=== PATIENT | female | born 1990 | race Caucasian/White ===

== ENCOUNTER 2017-12-20 00:14 | Emergency (ER) | payer OTHER ==
[2017-12-20] MEDS ORDERED: NS 0.9% 1000 ML* 1,000 ML IV ONE (01:29)
[2017-12-20] MEDS ORDERED: NS 0.9% 1000 ML* 1,000 ML IV SCH (01:45)
[2017-12-20 01:53] LABS: ABS Basophils 0 10^3/ul (0-0.2); ABS Eosinophils 0 10^3/ul (0-0.6); ABS Lymphocytes 0.4 10^3/ul (1.0-4.8); ABS Monocytes 0.3 10^3/ul (0-0.8); ABS Neutrophils 8.8 10^3/ul (1.5-7.7); ABS Nucleated RBC 0 10^3/ul; Eosinophil % 0 % (0-6); Hematocrit 41 % (35-47); Hemoglobin 14.3 g/dl (12.0-16.0); Lymphocyte % 4.3 % (25-47); Mean Corpuscular HGB Conc 35 g/dl (31-36); Mean Corpuscular Hemoglobin 30 pg (27-31); Mean Corpuscular Volume 88 fL (80-97); Mean Platelet Volume 9 um3 (7.4-10.4); Nucleated Red Blood Cells % 0; Platelet Count 213 10^3/ul (150-450); Red Blood Count 4.68 10^6/ul (4.0-5.4); Red Cell Distribution Width 13 % (10.5-15); White Blood Count 9.5 10^3/ul (3.5-10.8)
[2017-12-20 02:01] LABS: INR 0.92 (0.77-1.02)
[2017-12-20 02:09] LABS: EGFR Non-African American 64.3 (>60)
[2017-12-20 02:24] LABS: Urine Appearance Cloudy; Urine Blood Negative (Negative); Urine Color Amber; Urine Ketones Trace (Negative); Urine Protein Negative (Negative); Urine Specific Gravity 1.032 (1.010-1.030); Urine Urobilinogen Negative (Negative)
[2017-12-20] MEDS ORDERED: Iohexol 300* (CONTRAST) 10 ML SDV IV ONE (05:03)
[2017-12-20] MEDS ORDERED: Levofloxacin TAB* 500 MG PO ONE (05:35)
--- NOTE | 2017-12-20 05:41 | ED ---
Deshawn Escalante Angela, scribed for Perez Antoine on 12/20/17 at 0131 . GI/ HPI - HPI Summary HPI Summary: This pt is a 26 y/o female presenting to [facility] c/o UTI symptoms, diarrhea, and vomiting since this morning. Pt reports she has had 5-6 episodes of vomiting and 3 episodes of diarrhea. She additionally states abd pain and back pain. Pt notes she has had a low grade fever. Pt still has her appendix. Denies any PMHx. - History of Current Complaint Chief Complaint: EDNauseaVomitDiarrh Time Seen by Provider: 12/20/17 01:25 Stated Complaint: D/V, FEVER Hx Obtained From: Patient Onset/Duration: Started Hours Ago, Still Present Timing: Lasting Hours Current Severity: Moderate Pain Intensity: 6 Location of Pain: Diffuse Associated Signs and Symptoms: Positive: Nausea, Vomiting, Diarrhea, Fever - low grade, Abdominal Pain, UTI Symptoms, Other: - back pain Aggravating Factor(s): Nothing Alleviating Factor(s): Nothing - Allergy/Home Medications Allergies/Adverse Reactions: Allergies Allergy/AdvReac Type Severity Reaction Status Date / Time No Known Allergies Allergy Verified 12/20/17 01:18 PMH/Surg Hx/FS Hx/Imm Hx Endocrine/Hematology History: Denies: Hx Diabetes Cardiovascular History: Denies: Hx Hypertension History: Denies: Hx Kidney Stones - Immunization History Date of Tetanus Vaccine: unk Date of Influenza Vaccine: none Infectious Disease History: No Infectious Disease History: Denies: Traveled Outside the [place] in Last 30 Days - Family History Known Family History: Positive: Other - mom-ovarian cysts, removed - Social History Alcohol Use: Rare Hx Substance Use: No Substance Use Type: Reports: None Smoking Status (MU): Never Smoked Tobacco Review of Systems Positive: Fever - low grade Positive: Abdominal Pain, Vomiting, Diarrhea, Nausea Genitourinary: Other - UTI symptoms Musculoskeletal: Other - back pain All Other Systems Reviewed And Are Negative: Yes Physical Exam - Summary Physical Exam Summary: Appearance: Well appearing, no pain distress Skin: warm, dry, reflects adequate perfusion Head/face: normal Eyes: EOMI, TADEO ENT: normal Neck: supple, nontender Respiratory: CTA, breath sounds present Cardiovascular: RRR, pulses symmetrical Abdomen: soft, diffuse abdominal tenderness mostly in the RLQ. Bowel: present Musculoskeletal: normal, strength/ROM intact Neuro: normal, sensory motor intact, A&Ox3 Triage Information Reviewed: Yes Vital Signs On Initial Exam: Initial Vitals Temp Pulse Resp BP Pulse Ox 98.5 F 105 18 126/61 97 12/20/17 00:27 12/20/17 00:27 12/20/17 00:27 12/20/17 00:27 12/20/17 00:27 Vital Signs Reviewed: Yes Diagnostics - Vital Signs Vital Signs Temp Pulse Resp BP Pulse Ox 12/20/17 00:27 98.5 F 105 18 126/61 97 - Laboratory Lab Results: Lab Results 12/20/17 12/20/17 12/20/17 Range/Units 01:41 01:41 01:41 WBC 9.5 (3.5-10.8) 10^3/ul RBC 4.68 (4.0-5.4) 10^6/ul Hgb 14.3 (12.0-16.0) g/dl Hct 41 (35-47) % MCV 88 (80-97) fL MCH 30 (27-31) pg MCHC 35 (31-36) g/dl RDW 13 (10.5-15) % Plt Count 213 (150-450) 10^3/ul MPV 9 (7.4-10.4) um3 Neut % (Auto) 92.7 H (38-83) % Lymph % (Auto) 4.3 L (25-47) % [place] % (Auto) 2.8 (0-7) % Eos % (Auto) 0 (0-6) % Baso % (Auto) 0.2 (0-2) % Absolute Neuts (auto) 8.8 H (1.5-7.7) 10^3/ul Absolute Lymphs (auto) 0.4 L (1.0-4.8) 10^3/ul Absolute Monos (auto) 0.3 (0-0.8) 10^3/ul Absolute Eos (auto) 0 (0-0.6) 10^3/ul Absolute Basos (auto) 0 (0-0.2) 10^3/ul Absolute Nucleated RBC 0 10^3/ul Nucleated RBC % 0 INR (Anticoag Therapy) 0.92 (0.77-1.02) APTT 28.7 (26.0-36.3) seconds Sodium 132 L (133-145) mmol/L Potassium 3.8 (3.5-5.0) mmol/L Chloride 101 (101-111) mmol/L Carbon Dioxide 21 L (22-32) mmol/L Anion Gap 10 (2-11) mmol/L BUN 13 (6-24) mg/dL Creatinine 1.03 H (0.51-0.95) mg/dL Est GFR ( Amer) 82.7 (>60) Est GFR (Non-Af Amer) 64.3 (>60) BUN/Creatinine Ratio 12.6 (8-20) Glucose 119 H (70-100) mg/dL Lactic Acid (0.5-2.0) mmol/L Calcium 9.1 (8.6-10.3) mg/dL Total Bilirubin 0.60 (0.2-1.0) mg/dL AST 18 (13-39) U/L ALT 17 (7-52) U/L Alkaline Phosphatase 48 (34-104) U/L Total Protein 7.3 (6.4-8.9) g/dL Albumin 3.9 (3.2-5.2) g/dL Globulin 3.4 (2-4) g/dL Albumin/Globulin Ratio 1.1 (1-3) Lipase 12 (11.0-82.0) U/L Beta HCG, Quant < 0.60 mIU/mL Urine Color Urine Appearance Urine pH (5-9) Ur Specific [place] (1.010-1.030) Urine Protein (Negative) Urine Ketones (Negative) Urine Blood (Negative) Urine Nitrate (Negative) Urine Bilirubin (Negative) Urine Urobilinogen (Negative) Ur Leukocyte Esterase (Negative) Urine WBC (Auto) (Absent) Urine RBC (Auto) (Absent) Ur Squamous Epith Cells (Absent) Urine Bacteria (Absent) Urine Glucose (Negative) Urine Ascorbic Acid (Negative) 12/20/17 12/20/17 Range/Units 01:41 02:00 WBC (3.5-10.8) 10^3/ul RBC (4.0-5.4) 10^6/ul Hgb (12.0-16.0) g/dl Hct (35-47) % MCV (80-97) fL MCH (27-31) pg MCHC (31-36) g/dl RDW (10.5-15) % Plt Count (150-450) 10^3/ul MPV (7.4-10.4) um3 Neut % (Auto) (38-83) % Lymph % (Auto) (25-47) % [place] % (Auto) (0-7) % Eos % (Auto) (0-6) % Baso % (Auto) (0-2) % Absolute Neuts (auto) (1.5-7.7) 10^3/ul Absolute Lymphs (auto) (1.0-4.8) 10^3/ul Absolute Monos (auto) (0-0.8) 10^3/ul Absolute Eos (auto) (0-0.6) 10^3/ul Absolute Basos (auto) (0-0.2) 10^3/ul Absolute Nucleated RBC 10^3/ul Nucleated RBC % INR (Anticoag Therapy) (0.77-1.02) APTT (26.0-36.3) seconds Sodium (133-145) mmol/L Potassium (3.5-5.0) mmol/L Chloride (101-111) mmol/L Carbon Dioxide (22-32) mmol/L Anion Gap (2-11) mmol/L BUN (6-24) mg/dL Creatinine (0.51-0.95) mg/dL Est GFR ( Amer) (>60) Est GFR (Non-Af Amer) (>60) BUN/Creatinine Ratio (8-20) Glucose (70-100) mg/dL Lactic Acid 1.8 (0.5-2.0) mmol/L Calcium (8.6-10.3) mg/dL Total Bilirubin (0.2-1.0) mg/dL AST (13-39) U/L ALT (7-52) U/L Alkaline Phosphatase (34-104) U/L Total Protein (6.4-8.9) g/dL Albumin (3.2-5.2) g/dL Globulin (2-4) g/dL Albumin/Globulin Ratio (1-3) Lipase (11.0-82.0) U/L Beta HCG, Quant mIU/mL Urine Color Ila Urine Appearance Cloudy Urine pH 5.0 (5-9) Ur Specific [place] 1.032 H (1.010-1.030) Urine Protein Negative (Negative) Urine Ketones Trace H (Negative) Urine Blood Negative (Negative) Urine Nitrate Negative (Negative) Urine Bilirubin Negative (Negative) Urine Urobilinogen Negative (Negative) Ur Leukocyte Esterase 2+ H (Negative) Urine WBC (Auto) 2+(11-20/hpf) H (Absent) Urine RBC (Auto) 1+(3-5/hpf) H (Absent) Ur Squamous Epith Cells Present H (Absent) Urine Bacteria 1+ H (Absent) Urine Glucose Negative (Negative) Urine Ascorbic Acid * H (Negative) Result Diagrams: 12/20/17 01:41 12/20/17 01:41 Lab Statement: Any lab studies that have been ordered have been reviewed, and results considered in the medical decision making process. - CT Abdomen/Pelvis CT CT Interpretation: No Acute Changes - IMPRESSION: Negative for appendicitis. Normal appendix is visualized. No bowel obstruction, free air, or free fluid. Negative for diverticulitis or colitis. Normal liver. No obvious gallbladder abnormalities. Normal spleen. Normal pancreas. Normal adrenal glands. Normal kidneys urinary tract and urinary bladder. No obvious abnormalities of the pelvic organs. Osseous structures are intact. Dr. Antoine has reviewed this radiology report. CT Interpretation Completed By: Radiologist Re-Evaluation - Re-Evaluation First Eval Re-Evaluation Time: 05:37 Comment: I reviewed the CT abdomen/pelvis results with the pt. GIGU Course/Dx - Course Course Of Treatment: Pt is a 26 y/o female who presents with UTI symptoms, diarrhea, vomiting, abd pain and back pain since this morning. Pt still has her appendix. Bloodwork, UA and CT abdomen/pelvis were obtained. CT of the abdomen/ pelvis is negative. Pt will be discharged home with a prescription for Levaquin for her UTI. She is advised to follow up with her PCP. - Diagnoses Differential Diagnoses - Female: Appendicitis, Diverticulitis, Renal Colic, Urinary Tract Infection Provider Diagnoses: Urinary tract infection Discharge - Discharge Plan Condition: Stable Disposition: HOME Prescriptions: Levofloxacin TAB* [Levaquin TAB*] 500 mg PO DAILY #5 tab Patient Education Materials: Urinary Tract Infection in Women (ED) Referrals: [facility] - MRPaulo [Primary Care Provider] - 3 Days Additional Instructions: Please follow up with your primary care provider in 3 days. RETURN TO THE ED FOR ANY WORSENING SYMPTOMS. The documentation as recorded by the Deshawn oro Angela accurately reflects the service I personally performed and the decisions made by , Perez Antoine.
[2017-12-20 06:04] VITALS: BP 113/64
--- NOTE | 2017-12-20 08:27 | RAD ---
CLINICAL HISTORY: Right lower quadrant. COMPARISON: None TECHNIQUE: Contrast enhanced CT examination of the abdomen and pelvis from the lung bases through the initial tuberosities. The patient received 79 mL Omnipaque 300 intravenously prior to imaging.The patient received oral contrast as well prior to imaging. FINDINGS: VISUALIZED LUNG BASES: The visualized lung bases are grossly clear. There is no pleural effusion. ABDOMEN AND PELVIS: The liver, spleen, pancreas and adrenal glands are grossly normal in appearance. The gallbladder is normal. The kidneys are normal in appearance without focal mass, calcification or signs of hydronephrosis. The oral contrast has progressed as far as the descending colon. The small and large bowel are not distended. The diminutive contrast-filled appendix is identified in the right lower quadrant (axial image 56 and coronal image 36). There are scattered loops of small bowel that exhibited very mild wall thickening up to 5 mm in thickness (for example coronal image 33 and 24). Mesenteric lymph nodes are identified measuring up to 8 mm in short axis diameter. The pelvic viscera is normal in appearance. The abdominal aorta and iliac arteries are normal in course and diameter. There are no sinister bone lesions. IMPRESSION: 1. Normal-appearing appendix. 2. Top normal enlarged mesenteric lymph nodes and questionable mild scattered wall thickening of the small bowel. Please correlate to signs and symptoms of inflammatory or infectious bowel disease.
--- NOTE | 2017-12-23 08:55 | ED ---
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 Her cc was "UTI w/ vomiting, diarrhea, ab pain, back pain". A pelvic exam was not performed so unsure if this was causing pt's sx (possible PID) or other causes. Attempted to contact pt and voice message dulce "caller is unavailable - please try again later " - no option to leave message. Will mail letter to home. wes Ocampo, rita. Re-Evaluation - Re-Evaluation First Eval Re-Evaluation Time: 05:37 Comment: I reviewed the CT abdomen/pelvis results with the pt. Course/Dx - Course Course Of Treatment: Pt is a 26 y/o female who presents with UTI symptoms, diarrhea, vomiting, abd pain and back pain since this morning. Pt still has her appendix. Bloodwork, UA and CT abdomen/pelvis were obtained. CT of the abdomen/ pelvis is negative. Pt will be discharged home with a prescription for Levaquin for her UTI. She is advised to follow up with her PCP. - Diagnoses Provider Diagnoses: Urinary tract infection
== END 2017-12-20 06:03 | disposition home or self-care (01) ==
LOC: ED 00:14
DX: N39.0 Urinary tract infection, site not specified (principal); R11.10 Vomiting, unspecified; R19.7 Diarrhea, unspecified; R10.9 Unspecified abdominal pain
CPT/HCPCS: 36415; 74177; 80053; 81003; 81015; 83605; 83690; 84702; 85025; 85610; 85730; 87077; 87086; 96360; 99282; Q9967

== ENCOUNTER 2019-04-17 17:34 | Emergency (ER) | payer OTHER ==
[2019-04-17 20:17] LABS: ABS Basophils 0.1 10^3/ul (0-0.2); ABS Eosinophils 0.1 10^3/ul (0-0.6); ABS Lymphocytes 2.7 10^3/ul (1.0-4.8); ABS Monocytes 0.6 10^3/ul (0-0.8); ABS Neutrophils 4.8 10^3/ul (1.5-7.7); Eosinophil % 0.8 %; Hematocrit 44 % (35-47); Lymphocyte % 33.2 %; Mean Corpuscular HGB Conc 34 g/dL (31-36); Mean Corpuscular Hemoglobin 30 pg (27-31); Mean Corpuscular Volume 87 fL (80-97); Mean Platelet Volume 8.6 fL (7.4-10.4); Nucleated Red Blood Cells % 0.1; Platelet Count 273 10^3/uL (150-450); Red Blood Count 5.06 10^6 /uL (3.70-4.87); Red Cell Distribution Width 13 % (10-15); White Blood Count 8.2 10^3/uL (3.5-10.8)
[2019-04-17 20:24] LABS: INR 0.85 (0.82-1.09)
[2019-04-17 20:32] LABS: ALT 15 U/L (7-52); AST 17 U/L (13-39); Albumin 4.4 g/dL (3.2-5.2); Albumin/Globulin Ratio 1.1 (1-3); Alkaline Phosphatase 66 U/L (34-104); Anion Gap 7 mmol/L (2-11); BUN/Creatinine Ratio 14.9 (8-20); Blood Urea Nitrogen 14 mg/dL (6-24); CO2 Carbon Dioxide 26 mmol/L (22-32); Calcium 10.1 mg/dL (8.6-10.3); Chloride 103 mmol/L (101-111); Creatine Kinase 55 U/L (10-223); EGFR African American 85.2 (>60); EGFR Non-African American 70.4 (>60); Globulin 3.9 g/dL (2-4); Glucose 88 mg/dL (70-100); Magnesium 1.9 mg/dL (1.9-2.7); Potassium 4.3 mmol/L (3.5-5.0); Sodium 136 mmol/L (135-145); Total Protein 8.3 g/dL (6.4-8.9)
[2019-04-17 20:37] LABS: CKMB ng/mL 0.6 ng/mL (0.6-6.3)
--- NOTE | 2019-04-17 20:39 | ED ---
HPI Chest Pain - HPI Summary HPI Summary: A 28 y/o female presents to [facility] with a chief complaint of intermittent chest tightness since about 04/07/19. She thinks that this chest tightness made her more anxious. She notes that she has SOB and that her symptoms are worsened when eating and lying down. She states that she has to be "very deliberate to get a full breath in." She says that her chest tightness is mostly left sided and is intermittent. Her CP does not radiate. She denies N/V or sweating but notes that she may be a little nauseous after eating. She took Tums and Propranolol with no relief. She denies any calf pain. She sees people at [facility]. No Hx of blood clots. No FHx of bloodclots. FHx CHF from grandfather, dementia, Strokes. No SHx. Takes control. She reports EtOH use once per month. She denies smoking or substance abuse. Vital signs while in room: 90 bpm, O2 Sat 100%, BP 120/80 - History of Current Complaint Chief Complaint: EDChestPainROMI Hx Obtained From: Patient Onset/Duration: Started Days Ago, Still Present Timing: Intermittent, Lasting Minutes Initial Severity: Mild Current Severity: None Pain Intensity: 0 Pain Scale Used: 0-10 Numeric Chest Pain Location: Left Anterior Chest Pain Radiates: No Character: Tightness Aggravating Factor(s): Other: - eating, lying down Alleviating Factor(s): Nothing Associated Signs and Symptoms: Positive: Chest Pain, Shortness of Breath. Negative: Fever, Nausea, Vomiting - Allergy/Home Medications Allergies/Adverse Reactions: Allergies Allergy/AdvReac Type Severity Reaction Status Date / Time No Known Allergies Allergy Verified 12/20/17 01:18 Home Medications: Home Medications Norethindrone/Eth Est .03/26NF [Junel (NF)] 1 tab PO 04/17/19 [History] Propranolol TAB* [Inderal TAB*] 10 mg PO TID 04/17/19 [History Confirmed ] PMH/Surg Hx/FS Hx/Imm Hx Previously Healthy: Yes Endocrine/Hematology History: Denies: Hx Diabetes Cardiovascular History: Denies: Hx Hypertension Respiratory History: Denies: Hx Pulmonary Embolism History: Denies: Hx Kidney Stones - Surgical History Surgical History: None Surgery Procedure, Year, and Place: none reported - Immunization History Date of Tetanus Vaccine: unk Date of Influenza Vaccine: none Infectious Disease History: No Infectious Disease History: Denies: Traveled Outside the [place] in Last 30 Days - Family History Known Family History: Positive: Other - mom-ovarian cysts, removed, CHF, dementia, Stroke - Social History Occupation: Student - student support counselor at [employer] Alcohol Use: Rare Alcohol Amount: once per month Hx Substance Use: No Substance Use Type: Reports: None Smoking Status (MU): Never Smoked Tobacco Review of Systems Negative: Fever Positive: Chest Pain - tightness Positive: Shortness Of Breath Negative: Vomiting, Nausea Positive: no symptoms reported Musculoskeletal: Negative Skin: Negative Neurological: Negative Psychological: Normal All Other Systems Reviewed And Are Negative: Yes Physical Exam - Summary Physical Exam Summary: Appearance: well-appearing, intermittent mild pain distress, well-nourished Skin: Warm, color reflects adequate perfusion, dry Head: Normal Head/Face inspection, atraumatic Eyes: Conjunctiva clear ENT: Normal inspection Neck: Supple, no nodes, no JVD Respiratory: Lungs clear, normal breath sounds, no respiratory distress Cardio: RRR, No murmur, pulses normal, brisk capillary refill Abdomen: Soft, nontender Bowel sounds: Present Musculoskeletal: Strength Intact/ROM intact, no calf tenderness, no edema. Psychological: Normal Neuro: Alert, muscle tone normal, no focal deficit Triage Information Reviewed: Yes Vital Signs On Initial Exam: Initial Vitals Temp Pulse Resp BP Pulse Ox 98.1 F 68 18 128/81 100 04/17/19 17:45 04/17/19 17:45 04/17/19 17:45 04/17/19 17:45 04/17/19 17:45 Vital Signs Reviewed: Yes Diagnostics - Vital Signs Vital Signs Temp Pulse Resp BP Pulse Ox 04/17/19 17:45 98.1 F 68 18 128/81 100 - Laboratory Lab Results: Lab Results 04/17/19 04/17/19 04/17/19 Range/Units 20:00 20:00 20:00 WBC 8.2 (3.5-10.8) 10^3/uL RBC 5.06 H (3.70-4.87) 10^6 /uL Hgb 15.0 (12.0-16.0) g/dL Hct 44 (35-47) % MCV 87 (80-97) fL MCH 30 (27-31) pg MCHC 34 (31-36) g/dL RDW 13 (10-15) % Plt Count 273 (150-450) 10^3/uL MPV 8.6 (7.4-10.4) fL Neut % (Auto) 58.4 % Lymph % (Auto) 33.2 % [place] % (Auto) 6.8 % Eos % (Auto) 0.8 % Baso % (Auto) 0.8 % Absolute Neuts (auto) 4.8 (1.5-7.7) 10^3/ul Absolute Lymphs (auto) 2.7 (1.0-4.8) 10^3/ul Absolute Monos (auto) 0.6 (0-0.8) 10^3/ul Absolute Eos (auto) 0.1 (0-0.6) 10^3/ul Absolute Basos (auto) 0.1 (0-0.2) 10^3/ul Absolute Nucleated RBC 0.0 10^3/ul Nucleated RBC % 0.1 INR (Anticoag Therapy) 0.85 (0.82-1.09) D-Dimer, Quantitative < 200 (Less Than 230) ng/mL Sodium 136 (135-145) mmol/L Potassium 4.3 (3.5-5.0) mmol/L Chloride 103 (101-111) mmol/L Carbon Dioxide 26 (22-32) mmol/L Anion Gap 7 (2-11) mmol/L BUN 14 (6-24) mg/dL Creatinine 0.94 (0.51-0.95) mg/dL Est GFR ( Amer) 85.2 (>60) Est GFR (Non-Af Amer) 70.4 (>60) BUN/Creatinine Ratio 14.9 (8-20) Glucose 88 (70-100) mg/dL Lactic Acid (0.5-2.0) mmol/L Calcium 10.1 (8.6-10.3) mg/dL Magnesium 1.9 (1.9-2.7) mg/dL Total Bilirubin 0.40 (0.2-1.0) mg/dL AST 17 (13-39) U/L ALT 15 (7-52) U/L Alkaline Phosphatase 66 (34-104) U/L Total Creatine Kinase 55 (10-223) U/L CK-MB (CK-2) Pending Troponin I Pending Total Protein 8.3 (6.4-8.9) g/dL Albumin 4.4 (3.2-5.2) g/dL Globulin 3.9 (2-4) g/dL Albumin/Globulin Ratio 1.1 (1-3) TSH Pending Beta HCG, Quant Pending 04/17/19 Range/Units 20:00 WBC (3.5-10.8) 10^3/uL RBC (3.70-4.87) 10^6 /uL Hgb (12.0-16.0) g/dL Hct (35-47) % MCV (80-97) fL MCH (27-31) pg MCHC (31-36) g/dL RDW (10-15) % Plt Count (150-450) 10^3/uL MPV (7.4-10.4) fL Neut % (Auto) % Lymph % (Auto) % [place] % (Auto) % Eos % (Auto) % Baso % (Auto) % Absolute Neuts (auto) (1.5-7.7) 10^3/ul Absolute Lymphs (auto) (1.0-4.8) 10^3/ul Absolute Monos (auto) (0-0.8) 10^3/ul Absolute Eos (auto) (0-0.6) 10^3/ul Absolute Basos (auto) (0-0.2) 10^3/ul Absolute Nucleated RBC 10^3/ul Nucleated RBC % INR (Anticoag Therapy) (0.82-1.09) D-Dimer, Quantitative (Less Than 230) ng/mL Sodium (135-145) mmol/L Potassium (3.5-5.0) mmol/L Chloride (101-111) mmol/L Carbon Dioxide (22-32) mmol/L Anion Gap (2-11) mmol/L BUN (6-24) mg/dL Creatinine (0.51-0.95) mg/dL Est GFR ( Amer) (>60) Est GFR (Non-Af Amer) (>60) BUN/Creatinine Ratio (8-20) Glucose (70-100) mg/dL Lactic Acid 0.5 (0.5-2.0) mmol/L Calcium (8.6-10.3) mg/dL Magnesium (1.9-2.7) mg/dL Total Bilirubin (0.2-1.0) mg/dL AST (13-39) U/L ALT (7-52) U/L Alkaline Phosphatase (34-104) U/L Total Creatine Kinase (10-223) U/L CK-MB (CK-2) Troponin I Total Protein (6.4-8.9) g/dL Albumin (3.2-5.2) g/dL Globulin (2-4) g/dL Albumin/Globulin Ratio (1-3) TSH Beta HCG, Quant Result Diagrams: 04/17/19 20:00 04/17/19 20:00 Lab Statement: Any lab studies that have been ordered have been reviewed, and results considered in the medical decision making process. - Radiology CXR Radiology Interpretation Completed By: ED Physician Summary of Radiographic Findings: NAD. Pending official imaging report. - EKG 17:48 Cardiac Rate: NL - 79 bpm EKG Rhythm: Sinus Rhythm ST Segment: Non-Specific Ectopy: None EKG Comparison: Other - no previous to compare with Summary of EKG Findings: An EKG at 17:48 reveals nml AV/IV CT, nml QTc, and nml axis. Nonspecific ST-T waves No acute changes. ED MD has reviewed and interpreted this EKG. Chest Pain Course/Dx - Course Course Of Treatment: A 28 y/o female presents to [facility] with a chief complaint of intermittent chest tightness since about 04/07/19. Pt is on control, but does not smoke and is not tachycardic, and has normal O2 saturation and has normal d-dimer, so low risk for PE. Pt with no cardiac risk factors. The physical exam was unremarkable. An EKG at 17:48 reveals nml AV/IV CT, nml QTc, and nml axis. Nonspecific ST-T waves No acute changes. ED MD has reviewed and interpreted this EKG. Blood work, chemistries, urines and toxicology obtained. Trace Ur Leukocyte Esterase, Urine WBC 1+, Ur Squamous Epith Cells Present, Urine Bacteria 1+ at 20:29. Troponin of 0.00 at 20:00. D-dimer is <200. CXR showed NAD. The patient will be discharged with dx of probable GERD, a prescription for Protonix and follow up with [facility]. Pt is also advised of anti-GERD measures. The patient is agreeable with this plan. - Chest Pain Differential Diagnosis/HQI/PQRI: Acute PR, ACS, Angina, GI Disease, Lower Respiratory Infection, Pulmonary Embolism - Diagnoses Provider Diagnoses: Chest pain, GERD (gastroesophageal reflux disease) Discharge - Sign-Out/Discharge Documenting (check all that apply): Patient Departure - DC Patient Received Moderate/Deep Sedation with Procedure: No - Discharge Plan Condition: Stable Disposition: HOME Prescriptions: Pantoprazole TAB * [Protonix TAB*] 40 mg PO DAILY #30 tab Patient Education Materials: Chest Pain (ED), Gastroesophageal Reflux Disease ( ED) Referrals: [facility] - Paulo HUNT [[facility], APPLICATION, OTHER] - 3 Days Additional Instructions: We did not find a serious cardiac cause of your chest pain, or evidence of a blood clot. Dr. Harrington thinks you may have GERD. Please continue with your Tums as directed, and try the Protonix as directed, and try the anti-GERD measure of not lying down for at least two hours of eating anything. Follow up with [facility]. And please return to the ER if you have any new or worsening symptoms. - Billing Disposition and Condition Condition: STABLE Disposition: Home - Attestation Statements Document Initiated by Erasmo: Yes Documenting Scribe: Kamran Walls Provider For Whom Erasmo is Documenting (Include Credential): Dr. Jacki Harrington MD Scribe Attestation: Kamran Escalante scribed for Dr. Jacki Harrington MD on 04/18/19 at 0235. Scribe Documentation Reviewed: Yes Provider Attestation: The documentation as recorded by the Kamran oro accurately reflects the service I personally performed and the decisions made by me, Dr. Jacki Harrington MD Status of Scribjim Document: Viewed
[2019-04-17 20:40] LABS: HCG Pregnancy < 0.60 mIU/mL
[2019-04-17 20:55] LABS: Urine Appearance Clear; Urine Bacteria 1+ (Absent); Urine Bilirubin Negative (Negative); Urine Blood Negative (Negative); Urine Color Yellow; Urine Glucose Negative (Negative); Urine Ketones Negative (Negative); Urine Nitrite Negative (Negative); Urine Protein Negative (Negative); Urine Red Blood Cell 1+(3-5/hpf) (Absent); Urine Specific Gravity 1.019 (1.010-1.030); Urine Squamous Epithelial Cell Present (Absent); Urine Urobilinogen Negative (Negative); Urine White Blood Cell Trace(0-5/hpf) (Absent)
[2019-04-17 21:05] LABS: Urine Benzodiazepine Screen None Detected (None Detect); Urine Opiates Screen None Detected (None Detect)
[2019-04-17 21:10] LABS: TSH (Thyroid Stimulating Horm) 2.52 mcIU/mL (0.34-5.60)
[2019-04-17 22:01] VITALS: BP 131/78
== END 2019-04-17 22:05 | disposition home or self-care (01) ==
LOC: ED 17:34
DX: R07.89 Other chest pain (principal); K21.9 Gastro-esophageal reflux disease without esophagitis; R06.02 Shortness of breath
CPT/HCPCS: 36415; 71046; 80053; 80307; 81003; 81015; 82550; 82553; 83605; 83735; 84443; 84484; 84702; 85025; 85379; 85610; 87086; 93005; 99283